=== PATIENT | female | born 1945 | race Caucasian/White ===

== ENCOUNTER → 2017-09-23 | Outpatient (CLI) | payer MEDICARE ==
[~2017-09-23] MED LIST: AMOX-559 PO; HYDR-2966 PO; HYDR-4309 PO; IBUP600T22 PO; LISI-355 PO; OXYC-865 PO
== END ==
LOC: LAB 10:09
PROVIDERS: ATTEND Internal Medicine Cardiovascular Disease
DX: I48.0 Paroxysmal atrial fibrillation (principal); R00.0 Tachycardia, unspecified
CPT/HCPCS: 36415; 84443

== ENCOUNTER → 2017-10-12 | Outpatient (CLI) | payer MEDICARE ==
--- NOTE | 2017-10-13 08:20 | RADIOLOGY IMAGING REPORT ---
FACILITY: [facility] PATIENT NAME: CHANCE ALEXIS : [id number] MR: [id number] V: [id number] EXAM DATE: ORDERING PHYSICIAN: PRECIOUS TORRES TECHNOLOGIST: Carlee Verdin PROCEDURE:BILATERAL DIGITAL SCREENING MAMMOGRAM WITH CAD ASSISTED INTERPRETATION & 3D TOMOSYNTHESIS COMPARISON:Prior mammograms 10/10/16, 10/09/15, 06/05/14, 05/19/14, 09/16/12. INDICATIONS:screening FINDINGS: Small amount of fibroglandular tissue is seen throughout the breasts. The parenchymal pattern has remained stable allowing for difference in mammographic technique & patient positioning. There is no evidence of malignant appearing mass, malignant appearing calcifications or other secondary sign of malignancy in either breast. DIAGNOSTIC CATEGORY 1--NEGATIVE. RECOMMENDATIONS: ROUTINE MAMMOGRAM AND CLINICAL EVALUATION. IMPRESSION: BIRADS 1: Negative No significant abnormality is seen. Dictated by: Teresa Arias M.D. on 10/12/2017 at 14:48 Transcribed by: NAVA on 10/12/2017 at 14:54 Approved by: Teresa Arias M.D. on 10/13/2017 at 8:19 [facility]
== END ==
LOC: MAMO 01:45
PROVIDERS: ATTEND Family Medicine
DX: Z12.31 Encounter for screening mammogram for malignant neoplasm of breast (principal)
CPT/HCPCS: 77063; 77067

== ENCOUNTER 2018-06-22 11:47 | Emergency (ER) | payer MEDICARE ==
[~2018-06-22 11:47] MED LIST changes: +ASPI81TA94 PO; -HYDR-4309 PO; +HYDR-653 PO
--- NOTE | 2018-06-22 11:51 | ER Report ---
History and Physical Time Seen By MD: 11:51 HPI/ROS CHIEF COMPLAINT: Slip and fall HISTORY OF PRESENT ILLNESS: This is a 72-year-old female who presents to the emergency department for slip and fall. Patient states that about 7:30 this morning she slipped in front of her house on some ice 1st landing on her tailbone and then falling back and hitting the back of her head. Patient states that she was dizzy after, ended up going to work, had a couple of dizzy spells while at work. Does have some mild posterior head pain. She also has pain to her lower back and tailbone. No numbness or tingling. No saddle anesthesia, no loss of bowel or bladder, no inability to urinate or defecate. No chest pain or shortness of breath. No other complaints. REVIEW OF SYSTEMS: Constitutional: No fever, no chills. Eyes: No discharge. ENT: No sore throat. Cardiovascular: No chest pain, no palpitations. Respiratory: No cough, no shortness of breath. Gastrointestinal: No abdominal pain, no vomiting. Genitourinary: No hematuria. Musculoskeletal: As above. Skin: No rashes. Neurological: As above. Allergies: Coded Allergies: No Known Drug Allergies (Unverified , 10/30/15) Home Meds Active Scripts Metaxalone (SKELAXIN) 800 Mg Tablet, 800 MG PO TID, #12 TAB 0 Refills Prov:MAARJIT CARRILLO DRAW FURNACE TENDER-BC 06/22/18 Ibuprofen (IBUPROFEN) 600 Mg Tablet, 1 TAB PO Q6H PRN for PAIN, #30 TAB Prov:REENA CARDOZA MD 10/24/15 Reported Medications Aspirin (ASPIR 81) 81 Mg Tablet.dr, 81 MG PO QDAY, TAB 06/22/18 Lisinopril/Hydrochlorothiazide (LISINOPRIL-HCTZ 20-25 MG TAB) 1 Each Tablet, 1 EACH PO QDAY 10/23/15 Discontinued Reported Medications Aspirin (ASPIRIN) Unknown Strength Tab.chew, PO QDAY, TAB.CHEW 12/21/17 Past Medical/Surgical History The patient has a past medical and surgical history of hypertension, multiple fractures, wears dentures, wears glasses, hysterectomy, right ankle surgery, tooth extraction, head injuries. Reviewed Nurses Notes: Yes Hx Smoking: No Smoking Status: Never Smoker Hx Substance Use Disorder: No Hx Alcohol Use: No Constitutional Vital Sign - Last 24 Hours 06/22/18 06/22/18 06/22/18 06/22/18 11:47 11:57 11:58 12:00 Temp 97.6 Pulse ??? 77 Resp 16 B/P (MAP) 117/98 117/92 (100) 117/71 (86) Pulse Ox 93 O2 Delivery Room Air 06/22/18 06/22/18 06/22/18 06/22/18 12:02 12:17 12:30 12:32 Pulse 85 82 ??? B/P (MAP) ???/??? (1665) Pulse Ox 95 94 06/22/18 06/22/18 06/22/18 06/22/18 12:47 13:00 13:02 13:17 Pulse 79 80 82 B/P (MAP) 131/69 (89) Pulse Ox 91 91 84 06/22/18 06/22/18 13:30 13:32 Pulse ??? B/P (MAP) ???/??? (9945) Physical Exam General Appearance: The patient is alert, has no immediate need for airway protection and no signs of toxicity. Eyes: Pupils equal and round no pallor or injection. ENT, Mouth: Mucous membranes are moist. Respiratory: There are no retractions, lungs are clear to auscultation. Cardiovascular: Regular rate and rhythm, systolic murmur, no clicks or rubs. Gastrointestinal: Abdomen is soft and non tender, no masses, bowel sounds normal. Neurological: Alert and oriented 4. Moving all extremities. Following all commands. No focal neuro deficits. Skin: Warm and dry, no rashes. Musculoskeletal: Neck is supple non tender. Posterior scalp pain, no hematomas, crepitus or bleeding identified. Extremities are nontender, nonswollen and have full range of motion. Increased lower back into coccyx pain with straight leg raise on the left and right worse with the left leg. No deformities, no crepitus. DIFFERENTIAL DIAGNOSIS: After history and physical exam differential diagnosis was considered for contusion, abrasion, subluxation, fracture, subdural hematoma, skull fracture. Medical Decision Making EKG/Imaging Imaging PATIENT NAME: Em Sanon : 1945 MR: [id number] V: [id number] EXAM DATE: ORDERING PHYSICIAN: AMARJIT CARRILLO TECHNOLOGIST: Location: [facility] Patient: Em Sanon : 1945 Visit/Account:[id number] Date of Sevice: 06/22/2018 Exam type: SACRUM & COCCYX History: lower back and taibone inj from fall Comparison: None. Findings: There is no gross evidence of acute fracture involving the sacrum or coccyx. Degenerative changes of the SI joints are incidentally noted. Severe degenerative changes at the pubic symphysis are present IMPRESSION: 1. No definite fracture seen involving the sacrum or coccyx Report Dictated By: Teresa Arias MD at 06/22/2018 1:08 PM Report E-Signed By: Teresa Arias MD at 06/22/2018 1:10 PM WSN:BILL PATIENT NAME: Em Sanon : 1945 MR: [id number] V: [id number] EXAM DATE: [id number] ORDERING PHYSICIAN: AMARJIT CARRILLO TECHNOLOGIST: Location: [facility] Patient: Em Sanon : 1945 Visit/Account:[id number] Date of Sevice: 06/22/2018 Exam type: L-SPINE >4 VIEWS History: lower back and taibone inj from fall Comparison: None. Findings: There are five nonrib-bearing lumbar-type vertebral bodies present. There is no evidence of acute fractures. There is mild disc space narrowing at L4-5 where there is a minimal 4 mm anterior listhesis of L4 with respect L5 presumably on a degenerative basis. There is moderate disc space narrowing at L5-S1. Incidentally noted are numerous gallstones in the right upper quadrant. IMPRESSION: 1. No evidence of acute fractures Mild to moderate degenerative changes of the lower lumbar spine Cholelithiasis Report Dictated By: Teresa Arias MD at 06/22/2018 1:10 PM Report E-Signed By: Teresa Arias MD at 06/22/2018 1:11 PM WSN:BILL Location: [facility] Patient: Em Sanon : 1945 Visit/Account:[id number] Date of Sevice: 06/22/2018 CT BRAIN NO CONTRAST EXAMINATION: CT head/brain without contrast HISTORY: Fell TECHNIQUE: Contiguous axial images were obtained from the skull base to the vertex without intravenous contrast. One of the following dose optimization techniques was utilized in the performance of this exam: Automated exposure control; adjustment of the mA and/or kV according to the patient's size; or use of an iterative reconstruction technique. Specific details can be referenced in the facility's radiology CT exam operational policy. COMPARISON STUDIES: None FINDINGS: Ventricles/sulci/fissures: Midline in position and normal in configuration. Masses/hemorrhage/midline shift: No hemorrhage. White matter: No white matter edema or contusion Helm-white differentiation: Well-maintained with no cerebral edema or contusion Extra-axial spaces: No subdural or epidural fluid collections. No subarachnoid blood Dural venous sinuses/arterial structures: Negative Skull base/calvarium: No calvarial or skull base abnormality. Visualized mastoid air cells/paranasal sinuses: Negative IMPRESSION: Negative CT scan of the head for acute intracranial pathology. Report Dictated By: Jet Ledesma MD at 06/22/2018 1:04 PM Report E-Signed By: Jet Ledesma MD at 06/22/2018 1:06 PM WSN:LONGCLCREAD Location: [facility] Patient: Em Sanon : 1945 Visit/Account:[id number] Date of Sev: 06/22/2018 CT VERTEBRA CERVICAL (NON CON) EXAMINATION: CT cervical spine without contrast History: Trauma One of the following dose optimization techniques was utilized in the performance of this exam: Automated exposure control; adjustment of the mA and/or kV according to the patient's size; or use of an iterative reconstruction technique. Specific details can be referenced in the facility's radiology CT exam operational policy. COMPARISON STUDIES: None TECHNIQUE: Axial images were obtained from the skull base through the upper thoracic spine without IV contrast.. Coronal and sagittal reformatted images were obtained from the axial source data. FINDINGS: Prevertebral soft tissues: Negative Alignment: Loss of the cervical lordosis with slight kyphotic curvature centered at the C5 level. Vertebral bodies: No vertebral body compression deformities or fractures. Posterior elements: Posterior elements well-maintained alignment with no facet fracture or disruption. Facet DJD asymmetrically seen on the right at the C/5 level. Disc spaces: Intervertebral disc spaces well-maintained. Visualized soft tissues anterior neck: Negative Visualized lung/mediastinum: There is pleural thickening noted along the left apex superior medially and along the posterior aspect of the right upper lung paralleling the posterior right third rib Minimal sinus disease noted in the left sphenoid sinus. IMPRESSION: 1. Negative CT scan of the cervical spine for acute bony pathology. Report Dictated By: Jet Ledesma MD at 06/22/2018 1:07 PM Report E-Signed By: Jet Ledesma MD at 06/22/2018 1:13 PM WSN:LONGCLCREAD ED Course/Re-evaluation ED Course The patient was admitted to room. A history and physical were obtained. Differential diagnoses were considered. A CT of the brain and cervical spine were negative for any acute abnormalities. Negative lumbar and sacral x-rays. I reviewed the imaging results with the patient. Was relieved. I did tell her that this is likely a contusion and will cause some discomfort for the next one to 3 days. Patient was given 650 mg acetaminophen and 800 mg of Skelaxin. The patient was also sent home with a prescription for Skelaxin. She is also instructed to take ibuprofen or Tylenol as needed for additional pain relief. She will follow- up with her primary care provider within one week for reevaluation if no improvement. Return to the ER for any other concerns. Patient was understanding and was discharged home. Decision to Disposition Date: Jun 22, 2018 Decision to Disposition Time: 13:24 Depart Departure Latest Vital Signs Vital Signs Date Time Temp Pulse Resp B/P (MAP) Pulse Ox O2 Delivery O2 Flow Rate FiO2 06/22/18 13:32 ??? 06/22/18 13:30 ???/??? (1665) 06/22/18 13:17 84 06/22/18 11:57 97.6 16 Room Air Impression: Primary Impression: Fall due to ice or snow Additional Impression: Contusion Condition: Improved Disposition: HOME OR SELF-CARE New Scripts Metaxalone (SKELAXIN) 800 Mg Tablet 800 MG PO TID, #12 TAB 0 Refills Prov: AMARJIT CARRILLO-BC 06/22/18 Patient Instructions: Fall Prevention (ED) Additional Instructions: No evidence of bleeding in the brain, no fractures. You will be sore for the next several days. Take 325-650mg of acetaminophen every 8 hours as needed for pain. Take 400-600 mg of ibuprofen every 8 hours as needed for pain. Try Skelaxin for muscle pain and spasms. Drink plenty of water. Get plenty of rest. If no improvement within the next 7 days follow-up with your primary care provider for reevaluation. Return to the emergency department for any other concerns or worsening symptoms. Problem Qualifiers Primary Impression: Fall due to ice or snow Encounter type: initial encounter Qualified Codes: W00.9XXA - Unspecified fall due to ice and snow, initial encounter Additional Impression: Contusion Encounter type: initial encounter Contusion area: lower back Qualified Codes: S30.0XXA - Contusion of lower back and pelvis, initial encounter AMARJIT CARRILLO DRAW FURNACE TENDER-BC Jun 22, 2018 11:51
[2018-06-22] MEDS ORDERED: ASPI-1471 PO (12:06)
[2018-06-22] MEDS ORDERED: ACETAMINOPHEN 325 MG TAB PO ONE (13:10)
--- NOTE | 2018-06-22 13:10 | RADIOLOGY IMAGING REPORT ---
FACILITY: [facility] [place] PATIENT NAME: Em Sanon : 1945 MR: [id number] V: [id number] EXAM DATE: ORDERING PHYSICIAN: AMARJIT CARRILLO TECHNOLOGIST: Location: [facility] Patient: Em Sanon : 1945 Visit/Account:[id number] Date of Sevice: 06/22/2018 CT BRAIN NO CONTRAST EXAMINATION: CT head/brain without contrast HISTORY: Fell TECHNIQUE: Contiguous axial images were obtained from the skull base to the vertex without intravenou s contrast. One of the following dose optimization techniques was utilized in the performance of this exam: Autom ated exposure control; adjustment of the mA and/or kV according to the patient's size; or use of an i terative reconstruction technique. Specific details can be referenced in the facility's radiology C T exam operational policy. COMPARISON STUDIES: None FINDINGS: Ventricles/sulci/fissures: Midline in position and normal in configuration. Masses/hemorrhage/midline shift: No hemorrhage. White matter: No white matter edema or contusion Helm-white differentiation: Well-maintained with no cerebral edema or contusion Extra-axial spaces: No subdural or epidural fluid collections. No subarachnoid blood Dural venous sinuses/arterial structures: Negative Skull base/calvarium: No calvarial or skull base abnormality. Visualized mastoid air cells/paranasal sinuses: Negative IMPRESSION: Negative CT scan of the head for acute intracranial pathology. Report Dictated By: Jet Ledesma MD at 06/22/2018 1:04 PM Report E-Signed By: Jet Ledesma MD at 06/22/2018 1:06 PM WSN:SOLANGE
--- NOTE | 2018-06-22 13:13 | RADIOLOGY IMAGING REPORT ---
FACILITY: [facility] [place] PATIENT NAME: Em Sanon : 1945 MR: [id number] V: [id number] EXAM DATE: ORDERING PHYSICIAN: AMARJIT CARRILLO TECHNOLOGIST: Location: [facility] [place] Patient: Em Sanon : 1945 Visit/Account:[id number] Date of Sevice: 06/22/2018 Exam type: SACRUM & COCCYX History: lower back and taibone inj from fall Comparison: None. Findings: There is no gross evidence of acute fracture involving the sacrum or coccyx. Degenerative changes of the SI joints are incidentally noted. Severe degenerative changes at the pubic symphysis are presen t IMPRESSION: 1. No definite fracture seen involving the sacrum or coccyx Report Dictated By: Teresa Arias MD at 06/22/2018 1:08 PM Report E-Signed By: Teresa Arias MD at 06/22/2018 1:10 PM WSN:AMICIVN
--- NOTE | 2018-06-22 13:14 | RADIOLOGY IMAGING REPORT ---
[place] [facility] [place] NAME: Em Sanon : 1945 MR: [id number] V: [id number] EXAM DATE: ORDERING PHYSICIAN: AMARJIT CARRILLO TECHNOLOGIST: Location: [facility] [place] Patient: Em Sanon : 1945 Visit/Account:[id number] Date of Sevice: 06/22/2018 Exam type: L-SPINE >4 VIEWS History: lower back and taibone inj from fall Comparison: None. Findings: There are five nonrib-bearing lumbar-type vertebral bodies present. There is no evidence of acute fr actures. There is mild disc space narrowing at L4-5 where there is a minimal 4 mm anterior listhesis of L4 with respect L5 presumably on a degenerative basis. There is moderate disc space narrowing at L5-S1. Incidentally noted are numerous gallstones in the right upper quadrant. IMPRESSION: 1. No evidence of acute fractures Mild to moderate degenerative changes of the lower lumbar spine Cholelithiasis Report Dictated By: Teresa Arias MD at 06/22/2018 1:10 PM Report E-Signed By: Teresa Arias MD at 06/22/2018 1:11 PM WSN:BILL
--- NOTE | 2018-06-22 13:16 | RADIOLOGY IMAGING REPORT ---
FACILITY: [facility] [place] PATIENT NAME: Em Sanon : 1945 MR: [id number] V: [id number] EXAM DATE: ORDERING PHYSICIAN: AMARJIT CARRILLO TECHNOLOGIST: Location: [facility] Patient: Em Sanon : 1945 Visit/Account:[id number] Date of Sevice: 06/22/2018 CT VERTEBRA CERVICAL (NON CON) EXAMINATION: CT cervical spine without contrast History: Trauma One of the following dose optimization techniques was utilized in the performance of this exam: Autom ated exposure control; adjustment of the mA and/or kV according to the patient's size; or use of an i terative reconstruction technique. Specific details can be referenced in the facility's radiology C T exam operational policy. COMPARISON STUDIES: None TECHNIQUE: Axial images were obtained from the skull base through the upper thoracic spine without IV contrast.. Coronal and sagittal reformatted images were obtained from the axial source data. FINDINGS: Prevertebral soft tissues: Negative Alignment: Loss of the cervical lordosis with slight kyphotic curvature centered at the C5 level. Vertebral bodies: No vertebral body compression deformities or fractures. Posterior elements: Posterior elements well-maintained alignment with no facet fracture or disruption . Facet DJD asymmetrically seen on the right at the C/5 level. Disc spaces: Intervertebral disc spaces well-maintained. Visualized soft tissues anterior neck: Negative Visualized lung/mediastinum: There is pleural thickening noted along the left apex superior medially and along the posterior aspect of the right upper lung paralleling the posterior right third rib Minimal sinus disease noted in the left sphenoid sinus. IMPRESSION: 1. Negative CT scan of the cervical spine for acute bony pathology. Report Dictated By: Jet Ledesma MD at 06/22/2018 1:07 PM Report E-Signed By: Jet Ledesma MD at 06/22/2018 1:13 PM WSN:SOLANGE
[2018-06-22] MEDS ORDERED: META800T18 PO (13:27)
[2018-06-22] MEDS ORDERED: METAXALONE 800 MG TAB PO SCH (14:00)
== END 2018-06-22 13:58 | disposition home or self-care (01) ==
LOC: ER 12:02
DX: S30.0XXA Contusion of lower back and pelvis, initial encounter (principal); W00.0XXA Fall on same level due to ice and snow, initial encounter
CPT/HCPCS: 70450; 72120; 72125; 72220; 99284; A9270

== ENCOUNTER → 2019-01-19 | Outpatient (CLI) | payer MEDICARE ==
[~2019-01-19] MED LIST changes: +ASPI-1471 PO; +META800T18 PO
--- NOTE | 2019-01-19 14:01 | RADIOLOGY IMAGING REPORT ---
FACILITY: [facility] [place] PATIENT NAME: CHANCE ALEXIS : [id number] MR: [id number] V: [id number] EXAM DATE: ORDERING PHYSICIAN: PRECIOUS TORRES TECHNOLOGIST: Carlee Verdin PROCEDURE: BILATERAL DIGITAL SCREENING MAMMOGRAM WITH CAD ASSISTED INTERPRETATION & 3D TOMOSYNTHESIS REASON FOR STUDY: Screening. COMPARISON: 10/12/17, priors to 09/16/12. VIEWS OBTAINED: Bilateral 2D & 3D full field CC & MLO projections. BREAST DENSITY: The breast tissue is predominantly fatty replaced. MAMMOGRAM FINDINGS: There are no mammographic findings concerning for malignancy. No significant interval change. IMPRESSION: BIRADS 1: Negative. DIAGNOSTIC CATEGORY 1--NEGATIVE. RECOMMENDATIONS: ROUTINE MAMMOGRAM IN 1YR AND CLINICAL EVALUATION. Dictated by: Vamshi Payne on 01/19/2019 at 8:56 Transcribed by: NAVA on 01/19/2019 at 10:32 Approved by: Vamshi Payne on 01/19/2019 at 13:55 [facility]
== END ==
LOC: MAMO 00:49
PROVIDERS: ATTEND Family Medicine
DX: Z12.31 Encounter for screening mammogram for malignant neoplasm of breast (principal)
CPT/HCPCS: 77063; 77067